=== PATIENT | male | born 1935 | race Caucasian/White ===

== ENCOUNTER 2018-03-10 13:28 | Emergency (ER) | payer MEDICARE, BC ==
--- NOTE | 2018-03-10 14:29 | UC ---
Ear Complaint HPI - HPI Summary HPI Summary: 82 yo male presents with RIGHT ear pain and drainage for the last 4 days. He tells me that 4 days ago he took his hearing aid out and noticed some drainage from his ear with some pain. Since that time he has not been wearing his RIGHT hearing aid, but the drainage and pain have increased. Denies fever, chills, sinus symptoms, headache, or dizziness. - History of Current Complaint Stated Complaint: EAR PAIN Time Seen by Provider: 03/10/18 14:29 Hx Obtained From: Patient Onset/Duration: Gradual Onset Severity Initially: Mild Severity Currently: Moderate Pain Intensity: 5 Pain Scale Used: 0-10 Numeric - Allergies/Home Medications Allergies/Adverse Reactions: Allergies Allergy/AdvReac Type Severity Reaction Status Date / Time azithromycin [From Zithromax] Allergy Intermediate Rash Verified 03/10/18 14:39 Home Medications: Home Medications Amiodarone TAB* [Cordarone TAB*] 200 mg PO DAILY 03/10/18 [History Confirmed ] Clopidogrel TAB* [Plavix TAB*] 75 mg PO DAILY 03/10/18 [History Confirmed ] Dulaglutide [Trulicity] 0.75 mg SQ 03/10/18 [History] Multivit with Iron,Minerals [Spectravite Senior] 1 each PO 03/10/18 [History] Pregabalin [Lyrica] 50 mg PO 03/10/18 [History] PMH/Surg Hx/FS Hx/Imm Hx Endocrine History: Dyslipidemia Cardiovascular History: Cardiac Disease, Hypertension, Pacemaker/ICD - Surgical History Surgical History: Yes Surgery Procedure, Year, and Place: pacemaker. hernia x2. neck surgery - Family History Known Family History: Positive: Cardiac Disease, Hypertension - Social History Occupation: Retired Lives: With Family Alcohol Use: Occasionally Substance Use Type: None Smoking Status (MU): Former Smoker Type: Cigarettes Review of Systems Constitutional: Negative Skin: Negative Eyes: Negative ENT: Ear Ache Respiratory: Negative Cardiovascular: Negative Gastrointestinal: Negative Neurovascular: Negative Neurological: Negative Psychological: Negative All Other Systems Reviewed And Are Negative: Yes Physical Exam - Summary Physical Exam Summary: GENERAL: NAD. WDWN. No pain distress. SKIN: No rashes, sores, lesions, or open wounds. HEENT: Head: AT/NC Eyes: EOM intact. Conjunctiva clear without inflammation or discharge. Ears: RIGHT EAR: Moderate canal edema with clear/white discharge. TM intact and WNL. LEFT EAR: TM intact and normal. Nose: Nasal mucosa pink and moist. NTTP maxillary and frontal sinus. Throat: Posterior oropharynx without exudates, erythema, or tonsillar enlargement. Uvula midline. NECK: Supple. Nontender. No lymphadenopathy. CHEST: No accessory muscle use. Breathing comfortably and in no distress. CV: Pulses intact. Brisk cap refill. NEURO: Alert. PSYCH: Age appropriate behavior. Triage Information Reviewed: Yes Vital Signs: Vital Signs: Temp Pulse Resp BP Pulse Ox 99.1 F 73 16 124/67 94 03/10/18 14:33 03/10/18 14:33 03/10/18 14:33 03/10/18 14:33 03/10/18 14:33 Ear Complaint Course/Dx - Course Course Of Treatment: Right otitis externa - Differential Dx/Diagnosis Provider Diagnoses: Right otitis externa Discharge - Sign-Out/Discharge Documenting (check all that apply): Patient Departure - Discharge Plan Condition: Stable Disposition: HOME Prescriptions: Ofloxacin 0.3% OTIC.LIV* [Floxin 0.3% OTIC.LIV*] 5 drop RIGHT EAR BID #1 btl Patient Education Materials: Otitis Externa (DC) Referrals: Tyler Conklin MD [Primary Care Provider] - Additional Instructions: If you develop a fever, shortness of breath, chest pain, new or worsening symptoms - please call your PCP or go to the ED. 1) Do not wear your RIGHT ear hearing aid for the next 5 days until your ear pain is improving Per institutional requirements, I have reviewed the chart, however, I was not consulted specifically or made aware of this patient by the above midlevel provider. I did not personally evaluate, interact with , or disposition this patient. - Billing Disposition and Condition Condition: STABLE Disposition: Home
--- OUTSIDE RECORDS SUMMARY | 2018-03-10 14:29 | XMS REPORT ---
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 Tyler Conklin MD Primary Care Physician Unavailable Payers Type Date Identification Numbers Payment Provider Subscriber Medicare Primary Policy Number: [id number] Medicare Chun Padgett PayID: [id number] [address] [facility] [place] [address] Health Maintenance Policy Number: [place] [employer] Chun Padgett Organization (HMO) [id number] [facility] PayID: [id number] [address] [place] [address] Problems Date Description Provider Status Onset: 01/19/2012 Impacted Liya Hendrix PA Active Family History Date Family Member(s) Problem(s) Comments General None Social History Type Date Description Comments Marital Status Occupation Retired Cigarette Use Used To Smoke Cigarettes But Quit. ETOH Use Rarely consumes alcohol Recreational Drug Use Denies Drug Use Allergies, Adverse Reactions, Alerts Date Description Reaction Status Severity Comments 10/21/2015 zithromax active hives-confirmed with 's office 05/20/2010 NKDA inactive Medications Medication Date Status Form Strength Qnty SIG Indications Ordering Provider Pravastatin / Active Tablets 20mg qday Unknown Sodium 0000 Aspirin / Active Chewtabs 81mg qday Unknown 0000 Everflex / Active Unknown 0000 Furosemide / Active Tablets 40mg qam Unknown 0000 Vitamin D-3 / Active 2000Unit Unknown 0000 Omeprazole / Active Tablets DR 20mg 30tabs 1 po qd Unknown 0000 Gabapentin / Active Capsules 100mg 30caps 1 by Unknown 0000 mouth daily at bedtime for 30 days Januvia / Active Tablets 25mg Unknown 0000 Glipizide 00/00/ Active Tablets 10mg 1/2 tab. Unknown 0000 bid Spironolactone 00/00/ Active Tablets 50mg 1 by Unknown 0000 mouth every day Jardiance 00/ Active Tablets 10mg 1 by Unknown 0000 mouth every day Dermotic 03/28/ Hx Oil 0.01% 3units apply 5 Sylvester, 2014 - drops Ra, 11/11/ twice a M.D. 2014 day to affected ear canal(s)f or 7-14 days Dermotic 10/05/ Hx Oil 0.01% 1Bottl 5 gtts Sylvester, 2014 - e right ear Ra, 03/28/ bid x 2 M.D. 2014 weeks prn Glyburide / Hx Tablets 10mg 1 By Unknown 0000 - Mouth / Twice 2016 Daily Triamterene /00/ Hx Powder Unknown - 2011 Ranitidine HCL / Hx Solution 150mg/6ML Unknown 2011 Fiber-Lax / Hx Tablets 625mg Unknown 2011 Triamterene/Hydr 00/ Hx Capsules 37.5-25mg qday Unknown ochlorothiazide 2011 Vitamin D /00/ Hx Tablets 400Unit Unknown 2011 Vitamin C /00/ Hx Tablets 500mg Unknown - 2014 Fish Oil /00/ Hx Capsules 1000mg Unknown 2011 Ramipril /00/ Hx Capsules 2.5mg qday Unknown 2014 Metoprolol /00/ Hx Tablets ER 25mg daily Unknown Succinate ER 0000 - 24HR 2014 Spironolactone /00/ Hx Tablets 50mg daily Unknown - 2014 Losartan /00/ Hx Tablets 25mg 30tabs 1/2 Unknown Potassium 0000 - tablet by 04/23/ mouth 2015 every day Metoclopramide 00/00/ Hx Tablets 5mg Unknown HCL - 2014 Amitriptyline 00/00/ Hx Tablets 10mg Unknown HCL 0000 - 2013 Vital Signs Date Vital Result Comment 02/21/2018 Weight 153.00 lb Height 66 inches 5'6" BMI (Body Mass Index) 24.7 kg/m2 BP Systolic 146 mmHg BP Diastolic 56 mmHg Heart Rate 69 /min O2 % BldC Oximetry 94 % Body Temperature 97.4 F Pain Level 0 06/21/2017 Weight 173.50 lb Height 66 inches 5'6" BMI (Body Mass Index) 28.0 kg/m2 BP Systolic 124 mmHg BP Diastolic 74 mmHg Heart Rate 74 /min O2 % BldC Oximetry 99 % Body Temperature 97.6 F 03/22/2017 Weight 177.00 lb Height 66 inches 5'6" BMI (Body Mass Index) 28.6 kg/m2 BP Systolic 127 mmHg BP Diastolic 72 mmHg Heart Rate 88 /min O2 % BldC Oximetry 92 % Body Temperature 98.8 F Pain Level 0 12/22/2016 Weight 177.00 lb Height 66 inches 5'6" BMI (Body Mass Index) 28.6 kg/m2 BP Systolic 127 mmHg BP Diastolic 57 mmHg Heart Rate 91 /min O2 % BldC Oximetry 94 % Body Temperature 97.6 F 09/22/2016 Weight 182.25 lb Height 66 inches 5'6" BMI (Body Mass Index) 29.4 kg/m2 BP Systolic 112 mmHg BP Diastolic 64 mmHg Heart Rate 70 /min O2 % BldC Oximetry 98 % Body Temperature 98.9 F 06/23/2016 Weight 183.25 lb Height 66 inches 5'6" BMI (Body Mass Index) 29.6 kg/m2 BP Systolic 128 mmHg BP Diastolic 82 mmHg Heart Rate 61 /min O2 % BldC Oximetry 96 % Body Temperature 98.6 F 03/03/2016 Weight 182.38 lb Height 66 inches 5'6" BMI (Body Mass Index) 29.4 kg/m2 BP Systolic 134 mmHg BP Diastolic 86 mmHg Heart Rate 82 /min O2 % BldC Oximetry 95 % Body Temperature 97.8 F 01/06/2016 Weight 193.38 lb Height 66 inches 5'6" BMI (Body Mass Index) 31.2 kg/m2 O2 % BldC Oximetry 97 % Body Temperature 97.9 F 10/21/2015 Weight 185.31 lb Height 66 inches 5'6" BMI (Body Mass Index) 29.9 kg/m2 BP Systolic 142 mmHg BP Diastolic 70 mmHg Heart Rate 90 /min O2 % BldC Oximetry 97 % Body Temperature 97.8 F Pain Level 0 08/08/2015 Weight 188.00 lb Height 66 inches 5'6" BMI (Body Mass Index) 30.3 kg/m2 BP Systolic 124 mmHg BP Diastolic 70 mmHg Heart Rate 81 /min O2 % BldC Oximetry 93 % Body Temperature 97.4 F Pain Level 0 05/09/2015 Weight 190.38 lb Height 66 inches 5'6" BMI (Body Mass Index) 30.7 kg/m2 BP Systolic 130 mmHg BP Diastolic 82 mmHg Heart Rate 86 /min O2 % BldC Oximetry 97 % Body Temperature 97.2 F Pain Level 0 02/06/2015 Weight 193.00 lb Height 66 inches 5'6" BMI (Body Mass Index) 31.1 kg/m2 BP Systolic 124 mmHg BP Diastolic 70 mmHg Heart Rate 69 /min O2 % BldC Oximetry 96 % Body Temperature 98.0 F Pain Level 0 11/12/2014 Weight 197.00 lb Height 66 inches 5'6" BMI (Body Mass Index) 31.8 kg/m2 BP Systolic 134 mmHg BP Diastolic 70 mmHg Heart Rate 64 /min O2 % BldC Oximetry 97 % Body Temperature 97.8 F Pain Level 0 07/27/2014 Weight 197.00 lb Height 66 inches 5'6" BMI (Body Mass Index) 31.8 kg/m2 BP Systolic 126 mmHg BP Diastolic 74 mmHg Body Temperature 98.4 F 06/12/2014 Weight 197.38 lb Height 66 inches 5'6" BMI (Body Mass Index) 31.9 kg/m2 BP Systolic 132 mmHg BP Diastolic 84 mmHg Heart Rate 53 /min O2 % BldC Oximetry 97 % Body Temperature 97.2 F 03/28/2014 Weight 195.00 lb Height 66 inches 5'6" BMI (Body Mass Index) 31.5 kg/m2 BP Systolic 122 mmHg BP Diastolic 60 mmHg Body Temperature 98.1 F Pain Level 0 01/03/2014 Weight 193.50 lb Height 66 inches 5'6" BMI (Body Mass Index) 31.2 kg/m2 BP Systolic 118 mmHg BP Diastolic 62 mmHg Body Temperature 99.1 F Pain Level 0 10/05/2013 Weight 197.38 lb Height 66 inches 5'6" BMI (Body Mass Index) 31.9 kg/m2 BP Systolic 130 mmHg BP Diastolic 84 mmHg Heart Rate 70 /min O2 % BldC Oximetry 99 % Body Temperature 97.9 F 07/13/2013 Weight 198.00 lb Height 66 inches 5'6" BMI (Body Mass Index) 32.0 kg/m2 BP Systolic 153 mmHg BP Diastolic 57 mmHg Heart Rate 83 /min O2 % BldC Oximetry 94 % Body Temperature 97.2 F 05/31/2013 Weight 195.00 lb Height 66 inches 5'6" BMI (Body Mass Index) 31.5 kg/m2 BP Systolic 120 mmHg BP Diastolic 60 mmHg Body Temperature 98.6 F 03/07/2013 Weight 197.00 lb Height 66 inches 5'6" BMI (Body Mass Index) 31.8 kg/m2 Heart Rate 74 /min O2 % BldC Oximetry 96 % Body Temperature 98.8 F 10/04/2012 Weight 202.00 lb Height 66 inches 5'6" BMI (Body Mass Index) 32.6 kg/m2 BP Systolic 120 mmHg BP Diastolic 70 mmHg Heart Rate 64 /min O2 % BldC Oximetry 98 % Body Temperature 98.4 F 06/03/2012 Weight 196.00 lb Height 66 inches 5'6" BMI (Body Mass Index) 31.6 kg/m2 BP Systolic 120 mmHg BP Diastolic 58 mmHg Body Temperature 99.0 F 01/19/2012 Weight 195.00 lb Height 66 inches 5'6" BMI (Body Mass Index) 31.5 kg/m2 BP Systolic 132 mmHg BP Diastolic 70 mmHg Heart Rate 95 /min O2 % BldC Oximetry 95 % Body Temperature 99.1 F 09/23/2011 Weight 197.00 lb Height 66 inches 5'6" BMI (Body Mass Index) 31.8 kg/m2 BP Systolic 120 mmHg BP Diastolic 70 mmHg Body Temperature 98.7 F 07/20/2011 Weight 202.00 lb Height 66 inches 5'6" BMI (Body Mass Index) 32.6 kg/m2 BP Systolic 124 mmHg BP Diastolic 72 mmHg Heart Rate 95 /min O2 % BldC Oximetry 98 % Body Temperature 98.7 F 11/28/2010 Weight 202.00 lb Height 66 inches 5'6" BMI (Body Mass Index) 32.6 kg/m2 BP Systolic 118 mmHg BP Diastolic 76 mmHg Heart Rate 91 /min O2 % BldC Oximetry 98 % Body Temperature 97.5 F 05/20/2010 Weight 192.00 lb Height 66 inches 5'6" BMI (Body Mass Index) 31.0 kg/m2 BP Systolic 136 mmHg BP Diastolic 88 mmHg Heart Rate 96 /min O2 % BldC Oximetry 98 % Body Temperature 97.0 F Results Description No Information Procedures Date CPT Code Description Status 06/21/2017 14074 Remove Impacted Cerumen Completed 03/22/2017 29886 Remove Impacted Cerumen Completed 12/22/2016 51188 Remove Impacted Cerumen Completed 09/22/2016 52633 Remove Impacted Cerumen Completed 06/23/2016 05144 Remove Impacted Cerumen Completed 03/03/2016 60672 Remove Impacted Cerumen Completed 01/06/2016 66904 Remove Impacted Cerumen Completed 10/21/2015 37363 Remove Impacted Cerumen Completed 08/08/2015 17717 Remove Impacted Cerumen Completed 05/09/2015 51018 Remove Impacted Cerumen Completed 02/06/2015 59426 Remove Impacted Cerumen Completed 11/12/2014 85561 Remove Impacted Cerumen Completed 07/27/2014 43914 Remove Impacted Cerumen Completed 06/12/2014 08296 Remove Impacted Cerumen Completed 03/28/2014 52655 Remove Impacted Cerumen Completed 01/03/2014 46268 Remove Impacted Cerumen Completed 10/05/2013 31736 Remove Impacted Cerumen Completed 07/13/2013 74015 Remove Impacted Cerumen Completed 05/31/2013 18055 Remove Impacted Cerumen Completed 03/07/2013 26794 Remove Impacted Cerumen Completed 10/04/2012 15701 Remove Impacted Cerumen Completed 06/03/2012 24443 Aurea Maneuver Completed 06/03/2012 50847 Remove Impacted Cerumen Completed 01/19/2012 59792 Remove Impacted Cerumen Completed 09/23/2011 11804 Remove Impacted Cerumen Completed 07/20/2011 56135 Remove Impacted Cerumen Completed 11/28/2010 81209 Remove Impacted Cerumen Completed 05/20/2010 80662 Aurea Maneuver Completed 05/20/2010 13277 Remove Impacted Cerumen Completed Encounters Type Date Location Provider CPT E/M Dx Office Visit 03/03/2016 10:45a [place] [address] H61.21 G47.9 R06.83 Office Visit 06/03/2012 2:30p [place] [address] 380.4 386.11 Office Visit 05/20/2010 11:00a [place] [address] 380.4 386.11 Plan of Care No Information Available
[2018-03-10 14:38] VITALS: BP 124/67
== END 2018-03-10 15:08 | disposition home or self-care (01) ==
LOC: UCCORT 13:28
DX: H60.91 Unspecified otitis externa, right ear (principal); Z88.1 Allergy status to other antibiotic agents; I10 Essential (primary) hypertension; Z95.810 Presence of automatic (implantable) cardiac defibrillator; Z87.891 Personal history of nicotine dependence; E78.5 Hyperlipidemia, unspecified; I51.9 Heart disease, unspecified
CPT/HCPCS: 99212; G0463